=== PATIENT | female | born 1950 | race Caucasian/White ===

== ENCOUNTER 2022-10-08 21:51 | Emergency (ER) | payer OTHER, MEDICAID ==
[~2022-10-08] VITALS: Ht 144.7 cm; Wt 55.8 kg
== END 2022-10-09 00:45 | disposition home or self-care (01) ==
LOC: ED 21:51
DX: M25.511 Pain in right shoulder (principal); M25.531 Pain in right wrist; R51.9 Headache, unspecified

== ENCOUNTER → 2024-03-08 | Outpatient (CLI) | payer OTHER ==
[~2024-03-08] MED LIST: BUSPAR15 MG PO; CLOBETASOL EMU100 GM T; CYMBALTA60 MG PO; Elocon 0.1% Cre15 GM T; IMITREX ST6 MG/0.52 SC; LEVOFLOXACIN750 M2 PO; LIPITOR40 MG PO; MIDODRINE HCL2.5 MG PO; MUCUS RELIEF E600 MG PO; NEURONTIN300 MG PO; PLAVIX75 M1 PO; TAMIFLU30 MG PO; TRAZODONE100 MG PO; TRELEGY ELLIPT1 EAC1 INH; VITAMIN D31250 MC2 PO; ZANAFLEX4 M2 PO; ZONISAMIDE100 MG PO
== END | disposition home or self-care (01) ==
LOC: WOUNDCARE 02:44
PROVIDERS: ATTEND Nurse Practitioner Family
DX: R21 Rash and other nonspecific skin eruption (principal); L24.A9 Irritant contact dermatitis due friction or contact with other specified body fluids; I12.9 Hypertensive chronic kidney disease with stage 1 through stage 4 chronic kidney disease, or unspecified chronic kidney disease; N18.9 Chronic kidney disease, unspecified; J44.9 Chronic obstructive pulmonary disease, unspecified; G40.909 Epilepsy, unspecified, not intractable, without status epilepticus; E78.5 Hyperlipidemia, unspecified; M81.0 Age-related osteoporosis without current pathological fracture; F17.200 Nicotine dependence, unspecified, uncomplicated; Z90.710 Acquired absence of both cervix and uterus; Z98.890 Other specified postprocedural states; Z79.899 Other long term (current) drug therapy